=== PATIENT | male | born 1955 | race Caucasian/White ===

== ENCOUNTER 2021-02-16 06:14 | Day surgery (SDC) | payer BC ==
[2021-02-16] MEDS ORDERED: Sodium Chloride 0.9% 1,000 ML IV SCH (07:00)
[2021-02-16] MEDS ORDERED: Midazolam 1 MG/ML 2 ML SDV ONE (07:13)
[2021-02-16] MEDS ORDERED: fentaNYL 100 MCG/2 ML SDV ONE (07:13)
[2021-02-16] MEDS ORDERED: Propofol 200 MG/20 ML SDV ONE ×2 (07:13→08:12)
[2021-02-16 09:31] VITALS: BP 131/75; PULSE 81
--- NOTE | 2021-02-18 09:31 | OR ---
DATE OF PROCEDURE: 02/16/2021 SURGEON: Mp Shearer MD PROCEDURE: Colonoscopy. FINDINGS: Prominent internal hemorrhoid, banded endoscopically. COMPLICATION: None. PR INTERN: None. ANESTHESIA: MAC. PREOPERATIVE DIAGNOSIS: Blood in stool. POSTOPERATIVE DIAGNOSIS: Blood in stool. RISKS: Risks, benefits, alternatives, and limitations including, but not limited to infection, bleeding, perforation, false positives and false negatives were explained to the patient and they wished to proceed. PROCEDURE IN DETAIL: The patient was placed in left lateral decubitus position. Digital rectal exam was performed without abnormality. Scope was introduced and advanced atraumatically to the ileocecal valve. A photo was taken of the appendiceal orifice. Scope was brought back to the ascending, transverse, descending colon, and retroflexed. No evidence of old or new blood. No masses. No polyps. The patient did have very prominent hemorrhoid which could be the etiology. Therefore, this was banded above the dentate line. The prep was acceptable. Approximately 90% of the luminal surface could be seen. Greater than 8 minutes was spent removing the scope. Recommend repeat colonoscopy in 10 years. Mp Shearer MD /[id number]
== END 2021-02-16 09:18 | disposition home or self-care (01) ==
LOC: JP.SDS 06:14
PROVIDERS: ATTEND Surgery
DX: K64.8 Other hemorrhoids (principal); K92.1 Melena; E78.5 Hyperlipidemia, unspecified; E66.9 Obesity, unspecified; Z68.31 Body mass index [BMI] 31.0-31.9, adult
CPT/HCPCS: 45398; J2250; J2704; J3010; J7030